=== PATIENT | female | born 1945 | race Caucasian/White ===

== ENCOUNTER → 2021-05-22 | Outpatient (CLI) | payer OTHER ==
[~2021-05-22] MED LIST: AMLODIPINE BESY10 MG PO; BENZONATATE100 MG PO; CEFUROXIME500 MG PO; CYMBALTA60 MG PO; DUONEB 2.5-0.5 M3 ML INH; FLOMAX0.4 MG PO; GLUCOTROL5 MG PO; HUMALOG100 UNIT/1 SUBQ; LEVAQUIN 500 M500 M2 PO; LEVEMIR SUBQ; METFORMIN HCL500 MG PO; MUCINEX600 MG PO; NARCAN 1MG/ML1 MG/M1; OCEAN104 ML NASAL; PERCOCET PO; PRINIVIL20 MG PO
== END ==
LOC: SJCVC 15:48
PROVIDERS: ATTEND Internal Medicine
DX: I45.19 Other right bundle-branch block (principal); R94.31 Abnormal electrocardiogram [ECG] [EKG]; Z13.220 Encounter for screening for lipoid disorders; J44.9 Chronic obstructive pulmonary disease, unspecified; E11.9 Type 2 diabetes mellitus without complications; I10 Essential (primary) hypertension; F17.200 Nicotine dependence, unspecified, uncomplicated; Z79.4 Long term (current) use of insulin

== ENCOUNTER → 2021-07-17 | Outpatient (CLI) | payer OTHER | LOC: SJCVC 15:08 | PROVIDERS: ATTEND Internal Medicine | DX: I10 Essential (primary) hypertension (principal); E78.00 Pure hypercholesterolemia, unspecified; I45.10 Unspecified right bundle-branch block; E11.9 Type 2 diabetes mellitus without complications; F17.200 Nicotine dependence, unspecified, uncomplicated; J44.9 Chronic obstructive pulmonary disease, unspecified; M54.50 Low back pain, unspecified; Z79.82 Long term (current) use of aspirin; Z79.4 Long term (current) use of insulin ==